=== PATIENT | male | born 1990 | race Caucasian/White ===

== ENCOUNTER 2016-08-28 13:11 | Day surgery (SDC) | payer OTHER ==
[~2016-08-28] VITALS: Ht 165.1 cm; Wt 72.6 kg
[~2016-08-28 13:11] MED LIST: No current meds
[2016-08-28 13:32] VITALS: BP 120/80; PULSE 68; O2SAT 98
[2016-08-28] MEDS ORDERED: 0.9% Sodium Chloride 1,000 ML IV PRN (13:38)
[2016-08-28] MEDS ORDERED: Sodium Chloride LOK Flush 10 mL Syringe IV PRN (13:40)
[2016-08-28] MEDS ORDERED: fentaNYL-PF 50 mCg/mL 2 mL Inj IVPUSH PRN (13:40)
[2016-08-28 14:18] VITALS: BP 101/65; PULSE 74; O2SAT 98
[2016-08-28 14:20] VITALS: BP 100/62; PULSE 77; O2SAT 99
[2016-08-28 14:35] VITALS: BP 92/59; PULSE 70; RESP 12; O2SAT 99
--- NOTE | 2016-08-28 14:46 | ENDO ---
[address] [address] ENDOSCOPY PROCEDURE PATIENT: VANDANA LÓPEZ : 1990 MR#: [id number] ADMIT: 08/28/2016 JOB ID: [id number] DATE: 08/28/2016 PROCEDURE: Colonoscopy. INDICATIONS: A 25-year-old male with intermittent red blood per rectum x5 years of uncertain etiology. EQUIPMENT: PCF H 180 AL. SEDATION: 1. 5 mg Versed. 2. 100 mcg fentanyl. PREPARATION: This was accomplished with two Fleet enemas and was quite exceptional. The mucosa was in essence clear apart from a couple of pockets of semi formed stool debris in the mid colon. In the proximal ascending and cecum coating the ileocecal valve, there was some green stool debris. Otherwise we had excellent visualization all the way to cecum. PROCEDURAL INFORMATION: After the risks and benefits were explained, written and verbal informed consent was obtained. The patient was brought into the endoscopy suite and placed into the left lateral decubitus position. Sedation was achieved as above. A digital rectal examination was accomplished. Externally no visible abnormalities were detected. The patient had internal hemorrhoids that could be palpated. No masses noted. The patient did have a moderately tense anal sphincter mechanism. I did not appreciate a fissure. The patient tolerated the exam quite well. The scope was introduced into the rectum and then advanced under direct visualization to the cecum as described above. The scope was slowly withdrawn to carefully examine the mucosa for any defects or lesions. The angle of the rectum with respect to the rectosigmoid junction was not optimal for retroflexing. I, therefore, pursued multiple direct views through the dentate line to exclude pathology. The colon was decompressed. The scope removed the patient who tolerated the procedure well. FINDINGS: No evidence of any proctitis. No colitis throughout. We had excellent mucosal visualization to approximately mid ascending colon. No significant polyps or mass lesions throughout. On direct view through the anal canal, the patient had evidence of some [id number] internal hemorrhoids with some superficial vascularity. No fissure appreciated. ENDOSCOPIC DIAGNOSES: 1. Moderate internal hemorrhoids. 2. Otherwise visually unremarkable colonoscopy to cecum. RECOMMENDATIONS: 1. Two tablespoons of ground flaxseed fiber mixed with 8 ounces of water juice or medium of the patient's choice to be taken at least daily. 2. Warm Epsom salt baths in the evenings over the next 5-7 days. 3. A seven day course of [id number] Preparation H suppository therapy. 4. Followup in GI clinic in the next six weeks to review clinical response.
== END 2016-08-28 23:59 | disposition home or self-care (01) ==
LOC: END 13:11
PROVIDERS: ATTEND Internal Medicine Gastroenterology
DX: K64.8 Other hemorrhoids (principal); K62.5 Hemorrhage of anus and rectum
CPT/HCPCS: 45378; G0500; J2250; J3010; J7030